=== PATIENT | male | born 1980 | race Caucasian/White ===

== ENCOUNTER 2016-11-27 13:25 | Emergency (ER) | payer OTHER ==
--- NOTE | 2016-11-27 15:02 | ED NURSING NOTES ---
Clinical Report - Nurses [facility] [address] [place] [address] 11/27/2016 13:25 Patient: VINITA FALLON TRIAGE Triage time 1400. Acuity: LEVEL 5. Chief Complaint: (broke tooth about 4 days ago, pain and swelling to face started 2 days ago). 14:00. --14:03 Zeina Mcdermott R.N. 14:00 11/27/16. BP: 137/88. HR: 64. RR: 18. O2 saturation: 100%. Temp: 98.4 F. Pain level now: 06/04. --14:03 Zeina Mcdermott R.N. Weight: 68 kg stated. Height/Length: 73 inches Per Patient. BMI: 19.8. --14:03 Zeina Mcdermott R.N. Medications None. --14:01 Zeina Mcdermott R.N. Tylenol 1000mg at 0730. --14:01 Zeina Mcdermott R.N. Allergies No Known Drug Allergy. --14:01 Zeina Mcdermott R.N. History Arrived by private vehicle. Historian: patient. Unaccompanied. Primary physician (nagi PCP no DDS). The patient has had swelling of the face. SOCIAL HX: Light tobacco smoker (cigarette)- less than 1/2 a pack per day. History of drug use: marijuana. No alcohol use. --14:03 Zeina Mcdermott R.N. PROBLEMS: Cluster Headache. Migraine Headache. --14:02 Zeina Mcdermott R.N. ADDITIONAL SURGERIES: Shoulder surgery . --14:02 Zeina Mcdermott R.N. Interventions ID band on patient. To treatment room. --14:03 Zeina Mcdermott R.N. PHYSICAL ASSESSMENT 14:00. GENERAL / NEURO / PSYCH: Alert. Oriented X 4. Appears in pain. HEENT: Voice within normal limits. Dental tenderness. CVS: Capillary refill less than 2 seconds. SKIN: Skin is warm and dry. --14:04 Zeina Mcdermott R.N. NURSING PROGRESS NOTES 14:22 11/27/16. Head of bed elevated. Reassurance given. Patient identifiers checked. Call light placed in reach. Side rails up. Bed placed in lowest position. Patient ready for evaluation- chart flagged. --14:22 Zeina Mcdermott R.N. DISPOSITION / DISCHARGE Departure time: 15:15 Nov 27 2016. Condition at departure: unchanged. No learning barriers present. Discharge instructions provided and reviewed with the patient. Reviewed warnings. Reviewed medication(s). Treatments reviewed. Reviewed referrals. Patient verbalized understanding. Written instructions provided in Kyrgyz. The patient was discharged home. He left the Emergency Department ambulatory and via private vehicle. Patient driving. --15:15 Rick Dominguez R.N. 15:14 11/27/16. BP: 132/72. HR: 90. RR: 18. O2 saturation: 98%. Temp: 98.6 F. Pain level now 7/10. --15:15 Rick Dominguez R.N. Locked/Released at 11/27/2016 16:08 by Zeina Mcdermott R.N.
--- NOTE | 2016-11-27 15:02 | ED CLINICAL REPORT ---
Clinical Report - Physicians/Mid Levels [facility] [address] [place] [address] 11/27/2016 13:25 Patient: VINITA FALLON Time Seen: 14:22; initial patient contact, initial documentation, patient care assumed. Arrived- By private vehicle. Historian- patient. HISTORY OF PRESENT ILLNESS Chief Complaint: DENTAL PAIN. This started about 4 days ago and is still present. Pain described as severe. No sore throat, mouth sores, nasal discharge or congestion or ear pain. No swollen jaw, jaw pain or facial pain. He has had severe toothache involving a single tooth (left upper molar). He has had swelling of the face. (says wisdom tooth broke off and the pain is getting worse). Similar symptoms previously: None. Recent medical care: Not recently seen/assessed. REVIEW OF SYSTEMS No fever or difficulty breathing. All systems otherwise negative, except as recorded above. PAST HISTORY See nurses notes. PROBLEMS: Cluster Headache. Migraine Headache. --14:02 Zeina Mcdermott R.N. ADDITIONAL SURGERIES: Shoulder surgery . --14:02 Zeina Mcdermott R.N. SOCIAL HISTORY Light tobacco smoker. History of occasional drug use: marijuana. No alcohol use. No recent travel. Is a local resident. FAMILY HISTORY Negative. ADDITIONAL NOTES The nursing notes have been reviewed with agreement regarding the chief complaint, HPI, ROS, PMH and patient medications and allergies. PHYSICAL EXAM Vital Signs: 11/27/2016 14:00 BP: 137/88. HR: 64. RR: 18. O2 saturation: 100%. Temp: 98.4 F. Pain level now: 9/10. Have been reviewed as normal and appear to be correct. Appearance: Alert. No acute distress. Head: Normal external inspection. Eyes: Pupils equal, round and reactive to light. Conjunctivae and eyelids normal. ENT: Mild, localized dental decay (lower right third molar) (piece of tooth gone). No gingival tenderness, induration, swelling or fluctuance. Ears normal. Nose normal. Pharynx normal. Lips normal. Gums normal. No trismus present. Uvula midline. Neck: Normal inspection. Trachea midline. No adenopathy. Thyroid normal. Neck supple. Respiratory: No respiratory distress. Skin: Normal skin color. No rash. Normal skin turgor. Extremities: Extremities exhibit normal ROM. Extremities nontender. Neuro: Oriented X 3. No motor deficit. No sensory deficit. PROGRESS AND PROCEDURES Patient counseled in person regarding the patient's stable condition and diagnosis. 15:02. Differential Diagnosis: Other possible considerations: dental pain, caries, abscess, avulsed tooth. Above considerations are based on history and physical exam. Differential diagnosis was discussed with patient. Disposition: Discharged home in good and unchanged condition (15:02). Condition: good and stable. CLINICAL IMPRESSION Moderate dental pain. INSTRUCTIONS Warnings: GENERAL WARNINGS: Return or contact your physician immediately if your condition worsens or changes unexpectedly, if not improving as expected, or if other problems arise. Specifically return if problem worsens. Prescription Medications: Penicillin V 500mg: take 1 tab orally every 6 hours for 10 days. Dispense forty (40). No refill Ultram 50 mg tablets: take 1-2 orally every 6 hours as needed for pain. Dispense twenty (20). No refills. Substitution is permissible. Follow-up: Follow up with a dentist in about three days even if well. Call for an appointment. Summary of care provided to patient. Understanding of the discharge instructions verbalized by patient. (Electronically signed by Marily Contreras A.R.N.P. 11/27/2016 16:30)
--- NOTE | 2016-11-27 15:02 | ED NURSING NOTES ---
Clinical Report - Nurses [facility] [address] [place] [address] 11/27/2016 13:25 Patient: VINITA FALLON TRIAGE Triage time 1400. Acuity: LEVEL 5. Chief Complaint: (broke tooth about 4 days ago, pain and swelling to face started 2 days ago). 14:00. --14:03 Zeina Mcdermott R.N. 14:00 11/27/16. BP: 137/88. HR: 64. RR: 18. O2 saturation: 100%. Temp: 98.4 F. Pain level now: 06/04. --14:03 Zeina Mcdermott R.N. Weight: 68 kg stated. Height/Length: 73 inches Per Patient. BMI: 19.8. --14:03 Zeina Mcdermott R.N. Medications None. --14:01 Zeina Mcdermott R.N. Tylenol 1000mg at 0730. --14:01 Zeina Mcdermott R.N. Allergies No Known Drug Allergy. --14:01 Zeina Mcdermott R.N. History Arrived by private vehicle. Historian: patient. Unaccompanied. Primary physician (nagi PCP no DDS). The patient has had swelling of the face. SOCIAL HX: Light tobacco smoker (cigarette)- less than 1/2 a pack per day. History of drug use: marijuana. No alcohol use. --14:03 Zeina Mcdermott R.N. PROBLEMS: Cluster Headache. Migraine Headache. --14:02 Zeina Mcdermott R.N. ADDITIONAL SURGERIES: Shoulder surgery . --14:02 Zeina Mcdermott R.N. Interventions ID band on patient. To treatment room. --14:03 Zeina Mcdermott R.N. PHYSICAL ASSESSMENT 14:00. GENERAL / NEURO / PSYCH: Alert. Oriented X 4. Appears in pain. HEENT: Voice within normal limits. Dental tenderness. CVS: Capillary refill less than 2 seconds. SKIN: Skin is warm and dry. --14:04 Zeina Mcdermott R.N. NURSING PROGRESS NOTES 14:22 11/27/16. Head of bed elevated. Reassurance given. Patient identifiers checked. Call light placed in reach. Side rails up. Bed placed in lowest position. Patient ready for evaluation- chart flagged. --14:22 Zeina Mcdermott R.N. DISPOSITION / DISCHARGE Departure time: 15:15 Nov 27 2016. Condition at departure: unchanged. No learning barriers present. Discharge instructions provided and reviewed with the patient. Reviewed warnings. Reviewed medication(s). Treatments reviewed. Reviewed referrals. Patient verbalized understanding. Written instructions provided in Kiswahili. The patient was discharged home. He left the Emergency Department ambulatory and via private vehicle. Patient driving. --15:15 Rick Dominguez R.N. 15:14 11/27/16. BP: 132/72. HR: 90. RR: 18. O2 saturation: 98%. Temp: 98.6 F. Pain level now 7/10. --15:15 Rick Dominguez R.N. Locked/Released at 11/27/2016 16:08 by Zeina Mcdermott R.N.
--- NOTE | 2016-11-27 16:30 | ED MAR SUMMARY ---
..... Medication Administration Record [facility] [address] [place], [place] [id number] Patient: VINITA FALLON Visit ID: [id number] 36y, M Weight: 68.0 kg Height/Length: 73 in BMI: 19.8 ALLERGIES: No Known Drug Allergy
--- NOTE | 2016-11-27 16:30 | ED MED RECONCILIATION SUMMARY ---
Patient: VINITA FALLON Medication Reconciliation Report [facility] VisitID: [id number] [address] [place] [address] 36y, M Registration Date/Time: 11/27/2016 Weight: 68.0 kg Height/Length: 73 in. BMI: 19.8 ALLERGIES: No Known Drug Allergy The patient's Home Medications are listed below: THE FOLLOWING MEDICATIONS NEED TO BE RECONCILED: Tylenol 1000mg at 0730 The source(s) of the original Home Medication information: Not obtained. The following Medications were given to the patient in the Emergency Department: None. The following Medications were prescribed to the patient: Penicillin V 500mg: take 1 tab orally every 6 hours for 10 days. Dispense forty (40). No refill -- Marily Contreras, Helene.R.N.P. Ultram 50 mg tablets: take 1-2 orally every 6 hours as needed for pain. Dispense twenty (20). No refills. Substitution is permissible. -- Marily Contreras A.R.N.P.
--- NOTE | 2016-11-27 16:30 | ED DISCHARGE INSTRUCTIONS ---
Patient: VINITA FALLON General Instructions [facility] VisitID: [id number] [place] [address] 36y, M Registration Date/Time: 11/27/2016 Moderate dental pain. INSTRUCTIONS Warnings: GENERAL WARNINGS: Return or contact your physician immediately if your condition worsens or changes unexpectedly, if not improving as expected, or if other problems arise. Specifically return if problem worsens. Prescription Medications: Penicillin V 500mg: take 1 tab orally every 6 hours for 10 days. Dispense forty (40). No refill Ultram 50 mg tablets: take 1-2 orally every 6 hours as needed for pain. Dispense twenty (20). No refills. Substitution is permissible. Follow-up: Follow up with a dentist in about three days even if well. Call for an appointment. Summary of care provided to patient. Understanding of the discharge instructions verbalized by patient. ADDITIONAL INFORMATION Dental Pain A crack or cavity in the tooth, which exposes the sensitive inner area of the tooth can cause tooth pain. An infection in the gum or the root of the tooth can cause pain and swelling. The pain is often made worse by drinking hot or cold fluids, or biting on hard foods. Pain may spread from the tooth to the ear or jaw on the same side. Home Care: Avoid hot and cold foods and liquids since your tooth may be sensitive to temperature changes. If your tooth is chipped or cracked, or if there is a large open cavity, apply OIL OF CLOVES (available [id number] in drug stores) directly to the tooth to reduce pain. Some pharmacies carry an [id number] "toothache kit." This contains a paste, which can be applied over the exposed tooth to decrease sensitivity. A cold pack on your jaw over the sore area may help reduce pain. You may use acetaminophen (Tylenol) or ibuprofen (Motrin, Advil) to control pain, unless another medicine was prescribed. [ NOTE: If you have chronic liver or kidney disease or ever had a stomach ulcer or GI bleeding, talk with your doctor before using these medicines.] If you have signs of an infection, an antibiotic will be given. Take it as directed. Follow-Up as directed with a dentist. Your pain may go away with the treatment given. However, only a dentist can fully evaluate and treat the cause and prevent the pain from coming back again. TOOTHACHE IS A SIGN OF DISEASE IN YOUR TOOTH AND SHOULD BE EXAMINED AND TREATED BY A DENTIST. Get Prompt Medical Attention if any of the following occur: Your face becomes swollen or red Pain worsens or spreads to the neck Fever over 100.4 F (38.0 C) Unusual drowsiness; headache or stiff neck; weakness or fainting Pus drains from the tooth Difficulty swallowing or breathing Penicillin V Potassium Oral tablet What is this medicine? PENICILLIN V (pen i SILL in V) is a penicillin antibiotic. It is used to treat certain kinds of bacterial infections. It will not work for colds, flu, or other viral infections. How should I use this medicine? Take this medicine by mouth with a full glass of water. Follow the directions on the prescription label. Take your medicine at regular intervals. Do not take your medicine more often than directed. Take all of your medicine as directed even if you think your are better. Do not skip doses or stop your medicine early. Talk to your economics instructor regarding the use of this medicine in children. While this drug may be prescribed for selected conditions, precautions do apply. What side effects may I notice from receiving this medicine? Side effects that you should report to your doctor or health home health care worker as soon as possible: allergic reactions like skin rash or hives, swelling of the face, lips, or tongue breathing problems fever new symptoms of infection redness, blistering, peeling or loosening of the skin, including inside the mouth unusually weak or tired Side effects that usually do not require medical attention (report to your doctor or health home health care worker if they continue or are bothersome): diarrhea headache nausea, vomiting sore mouth or tongue stomach upset What may interact with this medicine? control pills methotrexate other antibiotics probenecid some vaccines What if I miss a dose? If you miss a dose, take it as soon as you can. If it is almost time for your next dose, take only that dose. Do not take double or extra doses. Where should I keep my medicine? Keep out of the reach of children. Store at room temperature between 15 and 30 degrees C (59 and 86 degrees F). Keep container tightly closed. Throw away any unused medicine after the expiration date. What should I tell my health care provider before I take this medicine? They need to know if you have any of these conditions: asthma bowel disease, like colitis eczema kidney disease an unusual or allergic reaction to penicillin, cephalosporins, other antibiotics or medicines, foods, tartrazine or other dyes, or preservatives or trying to get breast-feeding What should I watch for while using this medicine? Tell your doctor or health home health care worker if your symptoms do not improve. Do not treat diarrhea with over the counter products. Contact your doctor if you have diarrhea that lasts more than 2 days or if it is severe and watery. If you have diabetes, you may get a false-positive result for sugar in your urine. Check with your doctor or health home health care worker. control pills may not work properly while you are taking this medicine. Talk to your doctor about using an extra method of control. Tramadol Hydrochloride Oral tablet What is this medicine? TRAMADOL (TRA ma dole) is a pain reliever. It is used to treat moderate to severe pain in adults. How should I use this medicine? Take this medicine by mouth with a full glass of water. Follow the directions on the prescription label. If the medicine upsets your stomach, take it with food or milk. Do not take more medicine than you are told to take. Talk to your economics instructor regarding the use of this medicine in children. Special care may be needed. What side effects may I notice from receiving this medicine? Side effects that you should report to your doctor or health home health care worker as soon as possible: allergic reactions like skin rash, itching or hives, swelling of the face, lips, or tongue breathing difficulties, wheezing confusion itching light headedness or fainting spells redness, blistering, peeling or loosening of the skin, including inside the mouth seizures Side effects that usually do not require medical attention (report to your doctor or health home health care worker if they continue or are bothersome): constipation dizziness drowsiness headache nausea, vomiting What may interact with this medicine? Do not take this medicine with any of the following medications: MAOIs like Carbex, Eldepryl, Marplan, Nardil, and Parnate This medicine may also interact with the following medications: alcohol or medicines that contain alcohol antihistamines benzodiazepines bupropion carbamazepine or oxcarbazepine clozapine cyclobenzaprine digoxin furazolidone linezolid medicines for depression, anxiety, or psychotic disturbances medicines for migraine headache like almotriptan, eletriptan, frovatriptan, naratriptan, rizatriptan, sumatriptan, zolmitriptan medicines for pain like pentazocine, buprenorphine, butorphanol, meperidine, nalbuphine, and propoxyphene medicines for sleep muscle relaxants naltrexone phenobarbital phenothiazines like perphenazine, thioridazine, chlorpromazine, mesoridazine, fluphenazine, prochlorperazine, promazine, and trifluoperazine procarbazine warfarin What if I miss a dose? If you miss a dose, take it as soon as you can. If it is almost time for your next dose, take only that dose. Do not take double or extra doses. Where should I keep my medicine? Keep out of the reach of children. Store at room temperature between 15 and 30 degrees C (59 and 86 degrees F). Keep container tightly closed. Throw away any unused medicine after the expiration date. What should I tell my health care provider before I take this medicine? They need to know if you have any of these conditions: brain tumor depression drug abuse or addiction head injury if you frequently drink alcohol containing drinks kidney disease or trouble passing urine liver disease lung disease, asthma, or breathing problems seizures or epilepsy suicidal thoughts, plans, or attempt; a previous suicide attempt by you or a family member an unusual or allergic reaction to tramadol, codeine, other medicines, foods, dyes, or preservatives or trying to get breast-feeding What should I watch for while using this medicine? Tell your doctor or health home health care worker if your pain does not go away, if it gets worse, or if you have new or a different type of pain. You may develop tolerance to the medicine. Tolerance means that you will need a higher dose of the medicine for pain relief. Tolerance is normal and is expected if you take this medicine for a long time. Do not suddenly stop taking your medicine because you may develop a severe reaction. Your body becomes used to the medicine. This does NOT mean you are addicted. Addiction is a behavior related to getting and using a drug for a non-medical reason. If you have pain, you have a medical reason to take pain medicine. Your doctor will tell you how much medicine to take. If your doctor wants you to stop the medicine, the dose will be slowly lowered over time to avoid any side effects. You may get drowsy or dizzy. Do not drive, use machinery, or do anything that needs mental alertness until you know how this medicine affects you. Do not stand or sit up quickly, especially if you are an older patient. This reduces the risk of dizzy or fainting spells. Alcohol can increase or decrease the effects of this medicine. Avoid alcoholic drinks. You may have constipation. Try to have a bowel movement at least every 2 to 3 days. If you do not have a bowel movement for 3 days, call your doctor or health home health care worker. Your mouth may get dry. Chewing sugarless gum or sucking hard candy, and drinking plenty of water may help. Contact your doctor if the problem does not go away or is severe. You have been given the following additional information: Dental Pain Penicillin V Potassium Oral tablet Tramadol Hydrochloride Oral tablet (Electronically signed by Marily Contreras A.R.N.P. 11/27/2016 16:30)
--- NOTE | 2016-11-27 16:30 | ED DISCHARGE INSTRUCTIONS ---
Patient: VINITA FALLON General Instructions [facility] VisitID: [id number] [place] [address] 36y, M Registration Date/Time: 11/27/2016 Moderate dental pain. INSTRUCTIONS Warnings: GENERAL WARNINGS: Return or contact your physician immediately if your condition worsens or changes unexpectedly, if not improving as expected, or if other problems arise. Specifically return if problem worsens. Prescription Medications: Penicillin V 500mg: take 1 tab orally every 6 hours for 10 days. Dispense forty (40). No refill Ultram 50 mg tablets: take 1-2 orally every 6 hours as needed for pain. Dispense twenty (20). No refills. Substitution is permissible. Follow-up: Follow up with a dentist in about three days even if well. Call for an appointment. Summary of care provided to patient. Understanding of the discharge instructions verbalized by patient. ADDITIONAL INFORMATION Dental Pain A crack or cavity in the tooth, which exposes the sensitive inner area of the tooth can cause tooth pain. An infection in the gum or the root of the tooth can cause pain and swelling. The pain is often made worse by drinking hot or cold fluids, or biting on hard foods. Pain may spread from the tooth to the ear or jaw on the same side. Home Care: Avoid hot and cold foods and liquids since your tooth may be sensitive to temperature changes. If your tooth is chipped or cracked, or if there is a large open cavity, apply OIL OF CLOVES (available [id number] in drug stores) directly to the tooth to reduce pain. Some pharmacies carry an oodd-jow-uewbvtl "toothache kit." This contains a paste, which can be applied over the exposed tooth to decrease sensitivity. A cold pack on your jaw over the sore area may help reduce pain. You may use acetaminophen (Tylenol) or ibuprofen (Motrin, Advil) to control pain, unless another medicine was prescribed. [ NOTE: If you have chronic liver or kidney disease or ever had a stomach ulcer or GI bleeding, talk with your doctor before using these medicines.] If you have signs of an infection, an antibiotic will be given. Take it as directed. Follow-Up as directed with a dentist. Your pain may go away with the treatment given. However, only a dentist can fully evaluate and treat the cause and prevent the pain from coming back again. TOOTHACHE IS A SIGN OF DISEASE IN YOUR TOOTH AND SHOULD BE EXAMINED AND TREATED BY A DENTIST. Get Prompt Medical Attention if any of the following occur: Your face becomes swollen or red Pain worsens or spreads to the neck Fever over 100.4 F (38.0 C) Unusual drowsiness; headache or stiff neck; weakness or fainting Pus drains from the tooth Difficulty swallowing or breathing Penicillin V Potassium Oral tablet What is this medicine? PENICILLIN V (pen i SILL in V) is a penicillin antibiotic. It is used to treat certain kinds of bacterial infections. It will not work for colds, flu, or other viral infections. How should I use this medicine? Take this medicine by mouth with a full glass of water. Follow the directions on the prescription label. Take your medicine at regular intervals. Do not take your medicine more often than directed. Take all of your medicine as directed even if you think your are better. Do not skip doses or stop your medicine early. Talk to your mechanical systems engineer regarding the use of this medicine in children. While this drug may be prescribed for selected conditions, precautions do apply. What side effects may I notice from receiving this medicine? Side effects that you should report to your doctor or health palliative care coordinator as soon as possible: allergic reactions like skin rash or hives, swelling of the face, lips, or tongue breathing problems fever new symptoms of infection redness, blistering, peeling or loosening of the skin, including inside the mouth unusually weak or tired Side effects that usually do not require medical attention (report to your doctor or health palliative care coordinator if they continue or are bothersome): diarrhea headache nausea, vomiting sore mouth or tongue stomach upset What may interact with this medicine? control pills methotrexate other antibiotics probenecid some vaccines What if I miss a dose? If you miss a dose, take it as soon as you can. If it is almost time for your next dose, take only that dose. Do not take double or extra doses. Where should I keep my medicine? Keep out of the reach of children. Store at room temperature between 15 and 30 degrees C (59 and 86 degrees F). Keep container tightly closed. Throw away any unused medicine after the expiration date. What should I tell my health care provider before I take this medicine? They need to know if you have any of these conditions: asthma bowel disease, like colitis eczema kidney disease an unusual or allergic reaction to penicillin, cephalosporins, other antibiotics or medicines, foods, tartrazine or other dyes, or preservatives or trying to get breast-feeding What should I watch for while using this medicine? Tell your doctor or health palliative care coordinator if your symptoms do not improve. Do not treat diarrhea with over the counter products. Contact your doctor if you have diarrhea that lasts more than 2 days or if it is severe and watery. If you have diabetes, you may get a false-positive result for sugar in your urine. Check with your doctor or health palliative care coordinator. control pills may not work properly while you are taking this medicine. Talk to your doctor about using an extra method of control. Tramadol Hydrochloride Oral tablet What is this medicine? TRAMADOL (TRA ma dole) is a pain reliever. It is used to treat moderate to severe pain in adults. How should I use this medicine? Take this medicine by mouth with a full glass of water. Follow the directions on the prescription label. If the medicine upsets your stomach, take it with food or milk. Do not take more medicine than you are told to take. Talk to your mechanical systems engineer regarding the use of this medicine in children. Special care may be needed. What side effects may I notice from receiving this medicine? Side effects that you should report to your doctor or health palliative care coordinator as soon as possible: allergic reactions like skin rash, itching or hives, swelling of the face, lips, or tongue breathing difficulties, wheezing confusion itching light headedness or fainting spells redness, blistering, peeling or loosening of the skin, including inside the mouth seizures Side effects that usually do not require medical attention (report to your doctor or health palliative care coordinator if they continue or are bothersome): constipation dizziness drowsiness headache nausea, vomiting What may interact with this medicine? Do not take this medicine with any of the following medications: MAOIs like Carbex, Eldepryl, Marplan, Nardil, and Parnate This medicine may also interact with the following medications: alcohol or medicines that contain alcohol antihistamines benzodiazepines bupropion carbamazepine or oxcarbazepine clozapine cyclobenzaprine digoxin furazolidone linezolid medicines for depression, anxiety, or psychotic disturbances medicines for migraine headache like almotriptan, eletriptan, frovatriptan, naratriptan, rizatriptan, sumatriptan, zolmitriptan medicines for pain like pentazocine, buprenorphine, butorphanol, meperidine, nalbuphine, and propoxyphene medicines for sleep muscle relaxants naltrexone phenobarbital phenothiazines like perphenazine, thioridazine, chlorpromazine, mesoridazine, fluphenazine, prochlorperazine, promazine, and trifluoperazine procarbazine warfarin What if I miss a dose? If you miss a dose, take it as soon as you can. If it is almost time for your next dose, take only that dose. Do not take double or extra doses. Where should I keep my medicine? Keep out of the reach of children. Store at room temperature between 15 and 30 degrees C (59 and 86 degrees F). Keep container tightly closed. Throw away any unused medicine after the expiration date. What should I tell my health care provider before I take this medicine? They need to know if you have any of these conditions: brain tumor depression drug abuse or addiction head injury if you frequently drink alcohol containing drinks kidney disease or trouble passing urine liver disease lung disease, asthma, or breathing problems seizures or epilepsy suicidal thoughts, plans, or attempt; a previous suicide attempt by you or a family member an unusual or allergic reaction to tramadol, codeine, other medicines, foods, dyes, or preservatives or trying to get breast-feeding What should I watch for while using this medicine? Tell your doctor or health palliative care coordinator if your pain does not go away, if it gets worse, or if you have new or a different type of pain. You may develop tolerance to the medicine. Tolerance means that you will need a higher dose of the medicine for pain relief. Tolerance is normal and is expected if you take this medicine for a long time. Do not suddenly stop taking your medicine because you may develop a severe reaction. Your body becomes used to the medicine. This does NOT mean you are addicted. Addiction is a behavior related to getting and using a drug for a non-medical reason. If you have pain, you have a medical reason to take pain medicine. Your doctor will tell you how much medicine to take. If your doctor wants you to stop the medicine, the dose will be slowly lowered over time to avoid any side effects. You may get drowsy or dizzy. Do not drive, use machinery, or do anything that needs mental alertness until you know how this medicine affects you. Do not stand or sit up quickly, especially if you are an older patient. This reduces the risk of dizzy or fainting spells. Alcohol can increase or decrease the effects of this medicine. Avoid alcoholic drinks. You may have constipation. Try to have a bowel movement at least every 2 to 3 days. If you do not have a bowel movement for 3 days, call your doctor or health palliative care coordinator. Your mouth may get dry. Chewing sugarless gum or sucking hard candy, and drinking plenty of water may help. Contact your doctor if the problem does not go away or is severe. You have been given the following additional information: Dental Pain Penicillin V Potassium Oral tablet Tramadol Hydrochloride Oral tablet (Electronically signed by Marily Contreras A.R.N.P. 11/27/2016 16:30)
--- NOTE | 2016-11-27 16:30 | ED MED RECONCILIATION SUMMARY ---
Patient: VINITA FALLON Medication Reconciliation Report [facility] VisitID: [id number] [address] [place] [address] 36y, M Registration Date/Time: 11/27/2016 Weight: 68.0 kg Height/Length: 73 in. BMI: 19.8 ALLERGIES: No Known Drug Allergy The patient's Home Medications are listed below: THE FOLLOWING MEDICATIONS NEED TO BE RECONCILED: Tylenol 1000mg at 0730 The source(s) of the original Home Medication information: Not obtained. The following Medications were given to the patient in the Emergency Department: None. The following Medications were prescribed to the patient: Penicillin V 500mg: take 1 tab orally every 6 hours for 10 days. Dispense forty (40). No refill -- Marily Contreras, Helene.R.N.P. Ultram 50 mg tablets: take 1-2 orally every 6 hours as needed for pain. Dispense twenty (20). No refills. Substitution is permissible. -- Marily Contreras A.R.N.P.
--- NOTE | 2016-11-27 16:30 | ED MAR SUMMARY ---
..... Medication Administration Record [facility] [address] [place], [place] [id number] Patient: VINITA FALLON Visit ID: [id number] 36y, M Weight: 68.0 kg Height/Length: 73 in BMI: 19.8 ALLERGIES: No Known Drug Allergy
== END 2016-11-27 15:18 | disposition home or self-care (01) ==
LOC: ED SRH 13:25
DX: K08.89 Other specified disorders of teeth and supporting structures (principal); F17.210 Nicotine dependence, cigarettes, uncomplicated